=== PATIENT | female | born 1975 | race African-American/Black ===

== ENCOUNTER 2017-01-20 16:13 | Inpatient (IN) | payer OTHER ==
[2017-01-20 16:39] VITALS: BMI 33.4
--- NOTE | 2017-01-20 16:45 | HP ---
CIWA Score - CIWA Score Nausea/Vomitin Muscle Tremors: 3 Anxiety: 3 Agitation: 3 Paroxysmal Sweats: 2 Orientation: 0-Oriented Tacttile Disturbances: 2-Mild Itch/Numbness/Burn Auditory Disturbances: 2-Mild Harshness/Frighten Visual Disturbances: 2-Mild Sensitivity Headache: 2-Mild CIWA-Ar Total Score: 22 Admission ROS BHS - HPI Chief Complaint: i need help to stop drinking alcohol Allergies/Adverse Reactions: Allergies Allergy/AdvReac Type Severity Reaction Status Date / Time No Known Allergies Allergy Verified 01/20/17 16:42 History of Present Illness: this 41 years old female with alcohol dependence,withdrawal symptom,never been in detox before syncope alcohol related htn on med bipolar disorder Exam Limitations: No Limitations - Ebola screening Have you traveled outside of the country in the last 21 days: No Have you had contact with anyone from an Ebola affected area: No Have you been sick,other than usual withdrawal symptoms: No Do you have a fever: No - Review of Systems Constitutional: Loss of Appetite, Malaise, Night Sweats, Changes in sleep, Weakness EENT: reports: Nose Congestion Respiratory: reports: No Symptoms reported Cardiac: reports: No Symptoms Reported GI: reports: Nausea, Poor Appetite, Vomiting, Abdominal cramping : reports: No Symptoms Reported Integumentary: reports: Dryness Neuro: reports: Headache, Tremors Endocrine: reports: No Symptoms Reported Hematology: reports: Bleeding Diathesis Psychiatric: reports: Anxious (bipolar disorder), other Patient History - Patient Medical History Hx Anemia: No Hx Asthma: No Hx Chronic Obstructive Pulmonary Disease (COPD): No Hx Cancer: No Hx Cardiac Disorders: No Hx Congestive Heart Failure: No Hx Hypertension: Yes (on med) Hx Hypercholesterolemia: No Hx Pacemaker: No Hx Seizures: No Hx Dementia: No Hx Diabetes: No Hx Gastrointestinal Disorders: No Hx Genitourinary Disorders: No Hx Sexually Transmitted Disorders: No Hx Renal Disease (ESRD): No Hx Thyroid Disease: No Hx Human Immunodeficiency Virus (HIV): No (last 10/04 negative) Hx Hepatitis C: No Hx Depression: Yes (on med) Hx Suicide Attempt: No Hx Bipolar Disorder: Yes Hx Schizophrenia: No Other Medical History: anxiet,no suicidal,no homicidal - Patient Surgical History Hx Abdominal Surgery: Yes (gastric bypass surgery 2008 [facility]) Other Surgical History: tubal ligation in 1998 - PPD History Previous Implant?: Yes Documented Results: Negative w/o proof Implanted On Prior R Admission?: No PPD to be Administered?: Yes - Reproductive History Patient is a Female of Child Bearing Age (11 -55 yrs old): Yes Last Menstrual Period: 01/13/17 Patient : No - Smoking Cessation Smoking history: Never smoked - Substance & Tx. History Hx Alcohol Use: Yes Hx Substance Use: No Substance Use Type: Alcohol Hx Substance Use Treatment: No - Substances Abused Alcohol Route: Oral Frequency: Daily Amount used: 8 of 40 ozs of beer Age of first use: 19 Date of Last Use: 01/19/17 Family Disease History - Family Disease History Family Disease History: Other: Father (alcohol), Mother (alcohol) Admission Physical Exam [facility] - Vital Signs Vital Signs: Vital Signs - 24 hr 01/20/17 16:35 Temperature 97.7 F Pulse Rate 105 H Respiratory 20 Rate Blood Pressure 150/99 - Physical General Appearance: Yes: Moderate Distress, Tremorous, Irritable, Sweating, Anxious HEENTM: Yes: MILO, Nasal Congestion, Rhinorrhea, Other (subconjunctival hemorrhage lat aspect left eye) Respiratory: Yes: Lungs Clear Neck: Yes: Within Normal Limits Breast: Yes: Breast Exam Deferred Cardiology: Yes: Tachycardia Abdominal: Yes: Within Normal Limits, Normal Bowel Sounds, Non Tender, Flat, Soft Genitourinary: Yes: Within Normal Limits Back: Yes: Muscle Spasm Musculoskeletal: Yes: Back pain, Muscle Pain Extremities: Yes: Tremors Neurological: Yes: wafer fab technician II-XII NML intact, Fully Oriented, Alert, Motor Strength 5/5 Integumentary: Yes: Dry Lymphatic: Yes: Within Normal Limits - Diagnostic (1) Alcohol dependence with uncomplicated withdrawal Current Visit: Yes Status: Acute (2) Syncope Current Visit: Yes Status: Acute (3) Essential hypertension Current Visit: Yes Status: Acute (4) Bipolar disorder Current Visit: Yes Status: Acute (5) Anxiety Current Visit: Yes Status: Acute Cleared for Admission [facility] - Detox or Rehab [facility] Level of Care: Medically Managed Detox Regimen/Protocol: Librium [facility] Breath Alcohol Content Breath Alcohol Content: 0 Urine Pregancy Test - Result Urine Test Results: Negative- NO Line Present Urine Drug Screen - Results Drug Screen Negative: Yes
[2017-01-20] MEDS ORDERED: MAG HYDROX/AL HYDROX/SIMETH 30 ML UNIT-DOSE CUP PO PRN (16:58)
[2017-01-20] MEDS ORDERED: guaiFENesin/D-METHORPHAN HB 10 ML UNIT-DOSE CUPS PO PRN (16:58)
[2017-01-20] MEDS ORDERED: P-EPHED 60MG/TRIPROLIDI 2.5MG TABLET PO PRN (16:58)
[2017-01-20] MEDS ORDERED: LOPERAMIDE HCL 2 MG CAPSULE PO PRN (16:58)
[2017-01-20] MEDS ORDERED: MAGNESIUM CITRATE 300 ML BOTTLE PO PRN (16:58)
[2017-01-20] MEDS ORDERED: ACETAMINOPHEN 325 MG TABLET (FP) PO PRN (16:58)
[2017-01-20] MEDS ORDERED: diphenhydrAMINE HCL 50 MG CAPSULE PO PRN (16:58)
[2017-01-20] MEDS ORDERED: hydrOXYzine PAMOATE 50 MG CAPSULE (FP) PO PRN (16:58)
[2017-01-20] MEDS ORDERED: MENTHOL/PHENOL 1 EACH UD MM PRN (16:58)
[2017-01-20] MEDS ORDERED: MAGNESIUM HYDROX 2400MG/30ML ORAL SUSPENSION 30 ML CUP PO PRN (16:58)
[2017-01-20] MEDS ORDERED: IBUPROFEN 400 MG TABLET (FP) PO PRN (16:58)
[2017-01-20] MEDS ORDERED: ENALAPRIL MALEATE 10 MG TABLET (FP) PO SCH (17:15)
[2017-01-20] MEDS ORDERED: chlordiazePOXIDE HCL 25 MG CAPSULE PO ONE (19:41)
[2017-01-20] MEDS ORDERED: chlordiazePOXIDE HCL 25 MG CAPSULE PO PRN (19:41)
[2017-01-20] MEDS ORDERED: THIAMINE HCL 100 MG TABLET (FP) PO SCH (22:00)
[2017-01-20] MEDS: chlordiazePOXIDE HCL 25 MG CAPSULE PO SCH (22:14)
[2017-01-21 00:15] LABS: URINE APPEARANCE SLCLOUDY; URINE BILIRUBIN NEGATIVE (NEGATIVE); URINE COLOR YELLOW; URINE GLUCOSE (UA) NEGATIVE (NEGATIVE); URINE KETONE TRACE (NEGATIVE); URINE LEUK ESTERASE NEGATIVE (NEGATIVE); URINE NITRITE NEGATIVE (NEGATIVE); URINE PROTEIN NEGATIVE (NEGATIVE); URINE UROBILINOGEN NEGATIVE E.U./dl (0.2-1.0)
[2017-01-21 00:33] LABS: URINE BLOOD 3+ (NEGATIVE)
[2017-01-21 01:41] LABS: URINE MUCUS RARE; URINE RBC 246 /hpf (0-3); URINE WBC 24 /hpf (3-5)
[2017-01-21] MEDS: chlordiazePOXIDE HCL 25 MG CAPSULE PO SCH (05:12)
[2017-01-21 06:31] VITALS: BP 143/91; PULSE 75; TEMP 98.1
--- NOTE | 2017-01-21 08:45 | PN ---
S CIWA - CIWA Score Nausea/Vomitin Muscle Tremors: 3 Anxiety: 3 Agitation: 3 Paroxysmal Sweats: 1-Minimal Palms Moist Orientation: 0-Oriented Tacttile Disturbances: 1-Very Mild Itch/Numbness Auditory Disturbances: 1-Very Mild Visual Disturbances: 1-Very Mild Sensitivity Headache: 2-Mild CIWA-Ar Total Score: 18 BHS Progress Note (SOAP) Subjective: ALERT,IRRITABLE,ANXIOUS,INTERRUPTED SLEEP,TREMOR Objective: 01/21/17 08:43 Vital Signs Temperature 98.1 F 01/21/17 06:31 Pulse Rate 75 01/21/17 06:31 Respiratory Rate 16 01/21/17 06:31 Blood Pressure 143/91 01/21/17 06:31 O2 Sat by Pulse Oximetry (%) EKG NSR ,NORMAL ECG Laboratory Last Values Urine Color Yellow 01/20/17 23:58 Urine Appearance Slcloudy 01/20/17 23:58 Urine pH 5.0 (5.0-8.0) 01/20/17 23:58 Ur Specific [place] 1.016 (1.001-1.035) 01/20/17 23:58 Urine Protein Negative (NEGATIVE) 01/20/17 23:58 Urine Glucose (UA) Negative (NEGATIVE) 01/20/17 23:58 Urine Ketones Trace (NEGATIVE) H 01/20/17 23:58 Urine Blood 3+ (NEGATIVE) H 01/20/17 23:58 Urine Nitrite Negative (NEGATIVE) 01/20/17 23:58 Urine Bilirubin Negative (NEGATIVE) 01/20/17 23:58 Urine Urobilinogen Negative E.U./dl (0.2-1.0) 01/20/17 23:58 Ur Leukocyte Esterase Negative (NEGATIVE) 01/20/17 23:58 Urine RBC 246 /hpf (0-3) 01/20/17 23:58 Urine WBC 24 /hpf (3-5) 01/20/17 23:58 Ur Epithelial Cells Rare /hpf (FEW) 01/20/17 23:58 Urine Mucus Rare 01/20/17 23:58 LABS PENDING Assessment: 01/21/17 08:44 WITHDRAWAL SYMPTOM Plan: CONTINUE DETOX
--- NOTE | 2017-01-21 08:47 | PN ---
S Progress Note Note: PATIENT DID NOT WANT TO COMPLETE TREATMENT DUE TO FAMILY EMERGENCY PROBLEM,SEEN BY COUNSELOR, SIGNED RELEASE AMA
--- NOTE | 2017-01-21 08:52 | DS ---
[facility] Detox Discharge Summary Admission Date: 01/20/17 Discharge Date: 01/22/17 - History Present History: Alcohol Dependence Additional Comments: PATIENT DID NOT WANT TO COMPLETE TREATMENT DUE TO FAMILY EMERGENCY PROBLEM,SEEN BY COUNSELOR, SIGNED RELEASE AMA Pertinent Past History: SYNCOPE ESSENTIAL HYPERTENSION BIPOLAR DISORDER ANXIETY - Physical Exam Results Vital Signs: Vital Signs Temperature 98.1 F 01/21/17 06:31 Pulse Rate 75 01/21/17 06:31 Respiratory Rate 16 01/21/17 06:31 Blood Pressure 143/91 01/21/17 06:31 O2 Sat by Pulse Oximetry (%) Pertinent Admission Physical Exam Findings: WITHDRAWAL SYMPTOM - Medication Discharge Medications: Ambulatory Orders Unobtainable [Unobtainable] 01/20/17 - Diagnosis (1) Alcohol dependence with uncomplicated withdrawal Current Visit: Yes Status: Acute (2) Syncope Current Visit: Yes Status: Acute (3) Essential hypertension Current Visit: Yes Status: Acute (4) Bipolar disorder Current Visit: Yes Status: Acute (5) Anxiety Current Visit: Yes Status: Acute - AMA Did Patient Leave Against Medical Advice: Yes
[2017-01-21] MEDS ORDERED: PRENATAL VITAMINS W/ FOLIC ACID TABLET (FP) PO SCH (10:00)
[2017-01-21 10:23] LABS: MCH 23.1 pg (25.7-33.7); MCHC 31.8 g/dl (32.0-36.0); MEAN CELL VOLUME 72.4 fl (80-96); MEAN PLT VOLUME 8.6 fl (7.5-11.1); PLATELET COUNT 366 K/MM3 (134-434); RDW 21.3 % (11.6-15.6); WHITE BLOOD COUNT 11.1 K/mm3 (4.0-10.0)
[2017-01-21 10:43] LABS: ALK PHOS 43 U/L (45-117); ANION GAP 11 (8-16); BILIRUBIN,TOTAL 0.7 mg/dL (0.2-1.0); CALCIUM 8.3 mg/dL (8.5-10.1); CO2 23 mmol/L (21-32); CREATININE 0.6 mg/dL (0.55-1.02); GLUCOSE,RANDOM 88 mg/dL (74-106); SGOT/AST 20 U/L (15-37); SGPT/ALT 23 U/L (12-78); TOT PROT 6.5 g/dl (6.4-8.2)
[2017-01-21] MEDS ORDERED: chlordiazePOXIDE HCL 25 MG CAPSULE PO SCH (23:00)
--- NOTE | 2017-01-22 11:31 | EKG ---
Test Reason : Blood Pressure : / mmHG Vent. Rate : 080 BPM Atrial Rate : 080 BPM P-R Int : 162 ms QRS Dur : 086 ms QT Int : 398 ms P-R-T Axes : -19 017 031 degrees QTc Int : 459 ms NORMAL SINUS RHYTHM NORMAL ECG NO PREVIOUS ECGS AVAILABLE Confirmed by NAGA TARANGO MD ([id number]) on 01/22/2017 11:31:39 AM Referred By: Confirmed By:NAGA TAARNGO MD
[2017-01-22] MEDS ORDERED: chlordiazePOXIDE 5 MG CAPSULE PO SCH (23:00)
[2017-01-23] MEDS ORDERED: chlordiazePOXIDE HCL 10 MG CAPSULE PO SCH (23:00)
== END 2017-01-21 09:10 | disposition left against medical advice (07) | DRG 770 ==
LOC: YASAS 16:13 → Y6N 16:36
PROVIDERS: ADMIT Internal Medicine; ATTEND Internal Medicine Addiction Medicine
PROC: HZ2ZZZZ Detoxification Services for Substance Abuse Treatment (ICD-10-PCS; principal; 2017-01-21)
DX: F10.230 Alcohol dependence with withdrawal, uncomplicated (principal); F31.9 Bipolar disorder, unspecified; F41.9 Anxiety disorder, unspecified; I10 Essential (primary) hypertension; R55 Syncope and collapse
CPT/HCPCS: 36415; 80053; 81003; 81015; 85027; 86593; 93005; 93010